=== PATIENT | female | born 1975 | race Caucasian/White ===

== ENCOUNTER 2020-06-28 10:12 | Inpatient (IN) | payer BC ==
[~2020-06-28] VITALS: Ht 157.5 cm; Wt 131.2 kg
[~2020-06-28 10:12] MED LIST: CEFP500 PO; LEVFLO500 PO; OXYACE5T PO; RXHYDACE PO
[2020-06-28 11:11] LABS: Source, Urine Clean Catch
[2020-06-28 11:14] LABS: BASOPHILS ABSOLUTE AUTO 0.05 K/mm3 (0.00-0.23); BASOPHILS PERCENT AUTO 0 % (0-2); EOSINOPHILS ABSOLUTE AUTO 0.02 K/mm3 (0.00-0.68); EOSINOPHILS PERCENT AUTO 0 % (0-6); Hematocrit 40.8 % (33.0-51.0); Hemoglobin 13.2 g/dL (11.5-16.0); IMMATURE GRAN PERCENT AUTO 1 % (0-1); LYMPHOCYTES PERCENT AUTO 6 % (21-46); MONOCYTES ABSOLUTE AUTO 1.16 K/mm3 (0.16-1.47); MONOCYTES PERCENT AUTO 6 % (4-13); Mean Corpuscular HGB 28.4 pg (26.0-34.0); Mean Corpuscular HGB Conc 32.4 g/dL (31.5-36.5); Mean Corpuscular Volume 88 fL (80-100); Mean Platelet Volume 9.6 fL (9.1-12.4); NEUTROPHILS ABSOLUTE AUTO 15.92 K/mm3 (1.96-9.15); NEUTROPHILS PERCENT AUTO 87 % (41-73); Platelet Count 342 K/mm3 (150-400); RDW Coefficient Variation 13.8 % (11.7-14.2); RDW Standard Deviation 43.8 fL (35.1-46.3); Red Blood Cell Count 4.65 M/mm3 (3.80-5.20); White Blood Cell Count 18.35 K/mm3 (4.00-11.30)
[2020-06-28 11:20] LABS: Albumin, Blood 3.8 g/dL (3.4-5.0); Albumin/Globulin Ratio 0.7 (0.8-1.8); Bilirubin, Total 0.7 mg/dL (0.1-1.0); Bun/Creatinine Ratio 12.9 (12.0-20.0); Calcium, Blood 8.8 mg/dL (8.5-10.1); Creatinine, Blood 1.32 mg/dL (0.40-1.00); Globulin, Blood 5.2 g/dL (2.2-4.0); Potassium, Blood 3.2 mmol/L (3.5-5.5)
[2020-06-28 11:23] LABS: Appearance, Urine Hazy (Clear); Blood, Urine 2+ (Neg); Color, Urine Yellow (P-Yellow); Glucose Qualitative, Urine Neg (Neg); Ketones, Urine 1+ (Neg); Leukocyte Esterase, Urine 1+ (Neg); Nitrite, Urine Neg (Neg); Protein, Urine 2+ (Neg); Specific Gravity, Urine 1.025 (1.003-1.022); Urobilinogen, Urine 1+ (Normal)
[2020-06-28 11:26] LABS: Bilirubin, Urine 1+ (Neg)
[2020-06-28 11:51] LABS: Amorphous Heavy (0-Heavy); Bacteria Few /hpf; Squamous Epithelial Cells Mod /hpf (Few)
[2020-06-28 15:46] LABS: Influenza A, PCR NEGATIVE (NEGATIVE); Influenza B, PCR NEGATIVE (NEGATIVE); Resp Syncytial Virus, PCR NEGATIVE (NEGATIVE); SARS-Cov-2 (COVID-19) PCR, MMC NEGATIVE (NEGATIVE)
[2020-06-29 03:46] LABS: BASOPHILS ABSOLUTE AUTO 0.02 K/mm3 (0.00-0.23); BASOPHILS PERCENT AUTO 0 % (0-2); EOSINOPHILS PERCENT AUTO 0 % (0-6); Hematocrit 36.6 % (33.0-51.0); Hemoglobin 11.9 g/dL (11.5-16.0); IMMATURE GRAN ABSOLUTE AUTO 0.07 K/mm3 (0.00-0.10); IMMATURE GRAN PERCENT AUTO 0 % (0-1); LYMPHOCYTES ABSOLUTE AUTO 0.62 K/mm3 (0.84-5.20); LYMPHOCYTES PERCENT AUTO 3 % (21-46); MONOCYTES ABSOLUTE AUTO 0.61 K/mm3 (0.16-1.47); MONOCYTES PERCENT AUTO 3 % (4-13); Mean Corpuscular HGB 28.7 pg (26.0-34.0); Mean Corpuscular HGB Conc 32.5 g/dL (31.5-36.5); Mean Corpuscular Volume 88 fL (80-100); Mean Platelet Volume 9.8 fL (9.1-12.4); NEUTROPHILS ABSOLUTE AUTO 17.81 K/mm3 (1.96-9.15); NEUTROPHILS PERCENT AUTO 93 % (41-73); Platelet Count 308 K/mm3 (150-400); RDW Coefficient Variation 13.9 % (11.7-14.2); RDW Standard Deviation 44.6 fL (35.1-46.3); Red Blood Cell Count 4.15 M/mm3 (3.80-5.20); White Blood Cell Count 19.13 K/mm3 (4.00-11.30)
[2020-06-29 04:04] LABS: Bun/Creatinine Ratio 15.7 (12.0-20.0); Calcium, Blood 8.2 mg/dL (8.5-10.1); Creatinine, Blood 1.34 mg/dL (0.40-1.00); Potassium, Blood 3.4 mmol/L (3.5-5.5)
--- NOTE | 2020-06-29 04:40 | NUR ---
SHIFT SUMMARY: PT POD#1 FOR A LAP APPY. LAP SITES C/D/I WITH GAUZE IN PLACE. RON DRAINING A MODERATE AMOUNT OF SANGUINOUS FLUID. 120CC EMPTIED THIS SHIFT. PAIN BEING MANAGED WITH NORCO PER EMAR. PT GIVEN IV PAIN MEDICATION ONCE. DENIES FLATUS. PT AMBULATED IN HALLWAY ONCE THIS SHIFT. OUT OF BED TO BATHROOM SEVERAL TIMES WITH SBA. VOIDING WELL. PT REPORTS MILD DISCOMFORT WITH URINATION. URINE DARK YELLOW IN COLOR. ABX AND FLUIDS INFUSING PER EMAR. PT TOLERATING A SMALL AMOUNT OF CLEAR LIQUIDS THIS SHIFT. DENIES N/V.
--- NOTE | 2020-06-29 18:36 | NUR ---
SHIFT SUMMARY PT A&OX4, VSS, POD1 LAP APPY, 3 LAP SITES GAUZE C/D/I. PAIN MANAGED WITH 5 MG NORCO. JUANJOSE CLEAR LIQUID DIET. AMBULATES INDEPENDENT IN ROOM, TO BRP, UP TO CHAIR. SL, ABX Q6H. VOIDING WELL. WILL REPORT TO ONCOMING NOC RN.
--- NOTE | 2020-06-30 04:15 | NUR ---
SHIFT SUMMARY A/OX4, IND TO BATHROOM. POD2 APPY. LAP SITES TO ABD C/D/I. RON PATENT AND DRAINING SS FLUID. TOLEARTING CLEAR LIQUID DIET. MEDICATED FOR PAIN PER EMAR. VSS, NO ACUTE CHANGES AT THIS TIME. BED IN LOWEST POSITION WITH CALL LIGHT IN REACH. WILL CONTINUE TO MONITOR AND REPORT TO ONCOMING RN.
[2020-06-30 06:59] LABS: BASOPHILS ABSOLUTE AUTO 0.04 K/mm3 (0.00-0.23); BASOPHILS PERCENT AUTO 0 % (0-2); EOSINOPHILS ABSOLUTE AUTO 0.03 K/mm3 (0.00-0.68); EOSINOPHILS PERCENT AUTO 0 % (0-6); Hemoglobin 10.6 g/dL (11.5-16.0); IMMATURE GRAN ABSOLUTE AUTO 0.06 K/mm3 (0.00-0.10); IMMATURE GRAN PERCENT AUTO 1 % (0-1); LYMPHOCYTES ABSOLUTE AUTO 0.96 K/mm3 (0.84-5.20); LYMPHOCYTES PERCENT AUTO 8 % (21-46); MONOCYTES ABSOLUTE AUTO 0.81 K/mm3 (0.16-1.47); MONOCYTES PERCENT AUTO 7 % (4-13); Mean Corpuscular HGB 28.9 pg (26.0-34.0); Mean Corpuscular HGB Conc 32.1 g/dL (31.5-36.5); Mean Corpuscular Volume 90 fL (80-100); Mean Platelet Volume 9.6 fL (9.1-12.4); NEUTROPHILS ABSOLUTE AUTO 10.01 K/mm3 (1.96-9.15); NEUTROPHILS PERCENT AUTO 84 % (41-73); Platelet Count 303 K/mm3 (150-400); RDW Coefficient Variation 14.1 % (11.7-14.2); RDW Standard Deviation 45.8 fL (35.1-46.3); Red Blood Cell Count 3.67 M/mm3 (3.80-5.20); White Blood Cell Count 11.91 K/mm3 (4.00-11.30)
[2020-06-30 07:20] LABS: Bun/Creatinine Ratio 14.9 (12.0-20.0); Calcium, Blood 7.6 mg/dL (8.5-10.1); Creatinine, Blood 1.21 mg/dL (0.40-1.00); Potassium, Blood 3.1 mmol/L (3.5-5.5)
[2020-06-30] MEDS ORDERED: HYDR1TAB94 PO (15:05)
[2020-06-30] MEDS ORDERED: AMOCLA500 PO (15:06)
--- NOTE | 2020-06-30 15:13 | NUR ---
DR ASHER IN TO SEE PT DC'D RON DRAIN. PT TOLERATED WELL.
--- NOTE | 2020-06-30 15:36 | NUR ---
DISCHARGED IV DC'D, WNL, CATHETER INTACT. WENT OVER DISCHARGE INFORMATION, PT VERBALIZED UNDERSTANDING. PT LEFT FLOOR VIA W/C W/ DAUGHTER TO HER RIDE. DISCHARGE PAPER IN HAND.
== END 2020-06-30 15:15 | disposition home or self-care (01) | DRG 339 ==
LOC: ER 10:12 → SURS 14:51
PROVIDERS: Emergency Medicine; Physician Assistant; ADMIT Surgery
PROC: 0DTJ4ZZ Resection of Appendix, Percutaneous Endoscopic Approach (ICD-10-PCS; principal; 2020-06-28 16:30)
DX: K35.32 Acute appendicitis with perforation, localized peritonitis, and gangrene, without abscess (principal); Z68.43 Body mass index [BMI] 50.0-59.9, adult; Z20.822 Contact with and (suspected) exposure to COVID-19; E66.01 Morbid (severe) obesity due to excess calories; Z98.890 Other specified postprocedural states; Z88.5 Allergy status to narcotic agent
CPT/HCPCS: 0241U; 36415; 74176; 80048; 80053; 81001; 81025; 83690; 85025; 87086; 88304; 96365; 96375; 99285-25; A9270; J0330; J0694; J1170; J1650; J1885; J2250; J2370; J2405; J2543; J2704; J2710; J3010; J3480; J7040; J7120

== ENCOUNTER 2023-11-29 12:55 | Day surgery (SDC) | payer BC ==
[~2023-11-29] VITALS: Ht 157.5 cm; Wt 128.4 kg
[~2023-11-29 12:55] MED LIST changes: +AMOCLA500 PO; +Balanced Salt Epinephrine Irrigation Solution 500 mL IR SCH; +HYDR1TAB94 PO; +Lidocaine HCl/Pf 1% 5 ML VIAL XX SCH; +Moxifloxacin HCL 0.5 MG/0.1 ML 0.4MLSYR RIGHTEYE SCH; +NS 500 ML IV ONE; +PHENYLEPHRINE\\TROPICAMIDE\\TETRACAINE OPHTHALMIC DILATING SOLN RIGHTEYE PRN; +Povidone-Iodine 450 DROP/30 ML Solution ONE; +Povidone-Iodine 450 DROP/30 ML Solution RIGHTEYE SCH; +Tetracaine HCl/Pf 0.5% Opth Soln 4 ml ONE; +Triamcinolone Inj Susp 40 MG / ML 1ML Vial INJ SCH; +Triamcinolone Inj Susp 40 MG / ML 1ML Vial ONE
[2023-11-29] MEDS ORDERED: ACET500 PO (13:38)
[2023-11-29] MEDS ORDERED: IBU800 M1 PO (13:39)
[2023-11-29] MEDS ORDERED: OMEP20ER PO (13:40)
[2023-11-29] MEDS ORDERED: FUROSEMIDE20 MG PO (13:41)
[2023-11-29] MEDS ORDERED: K-TAB ER20 ME1 PO (13:42)
[2023-11-29] MEDS ORDERED: BIOTIN5000 MC4 PO (13:44)
[2023-11-29] MEDS ORDERED: Vitamin B-12250 MCG (13:45)
[2023-11-29] MEDS ORDERED: VITAMIN D325 MC3 (13:45)
[2023-11-29] MEDS ORDERED: NS 500 ML IV ONE (13:58)
--- NOTE | 2023-11-29 14:02 | NUR ---
[facility]29/[address] NOTIFIED OF PATIENT'S BLOOD PRESSURE 204/108 AND THEN 178/91. SECOND BLOOD PRESSURE TAKEN WITH RADIAL CUFF. NO NEW ORDERS FROM DR CLARK.
[2023-11-29] MEDS ORDERED: Ondansetron HCl 2 MG / ML 2ML Vial ONE (14:14)
[2023-11-29] MEDS ORDERED: Midazolam HCl 1MG / ML 2ML Vial ONE (14:14)
[2023-11-29] MEDS ORDERED: Labetalol HCL 5 MG/ML 4ML Injection (Single Dose) ONE (14:14)
[2023-11-29] MEDS ORDERED: HydrALAZINE HCl 20 MG / ML 1ML Vial ONE (14:14)
[2023-11-29] MEDS ORDERED: propofoL 20 ML IV ONE (14:30)
[2023-11-29 15:25] VITALS: BP 138/78
== END 2023-11-29 15:24 | disposition home or self-care (01) ==
LOC: ORSCSDS 12:55
PROVIDERS: Ophthalmology
PROC: 08RJ3JZ Replacement of Right Lens with Synthetic Substitute, Percutaneous Approach (ICD-10-PCS; principal; 2023-11-29 14:30)
DX: H25.813 Combined forms of age-related cataract, bilateral (principal); K21.9 Gastro-esophageal reflux disease without esophagitis; Z79.899 Other long term (current) drug therapy
CPT/HCPCS: J0360; J2250; J2405; J2704; J3301; J7040; V2632

== ENCOUNTER 2023-12-06 07:01 | Day surgery (SDC) | payer BC ==
[~2023-12-06] VITALS: Ht 157.5 cm; Wt 128.0 kg
[~2023-12-06 07:01] MED LIST changes: +ACET500 PO; +BIOTIN5000 MC4 PO; +FUROSEMIDE20 MG PO; +IBU800 M1 PO; +K-TAB ER20 ME1 PO; +Lidocaine HCl/Pf 1% 5 ML VIAL ONE; +Moxifloxacin HCL 0.5 MG/0.1 ML 0.4MLSYR LEFTEYE SCH; -Moxifloxacin HCL 0.5 MG/0.1 ML 0.4MLSYR RIGHTEYE SCH; +OMEP20ER PO; +PHENYLEPHRINE\\TROPICAMIDE\\TETRACAINE OPHTHALMIC DILATING SOLN LEFTEYE PRN; -PHENYLEPHRINE\\TROPICAMIDE\\TETRACAINE OPHTHALMIC DILATING SOLN RIGHTEYE PRN; +Povidone-Iodine 450 DROP/30 ML Solution LEFTEYE SCH; -Povidone-Iodine 450 DROP/30 ML Solution RIGHTEYE SCH; +VITAMIN D325 MC3; +Vitamin B-12250 MCG
[2023-12-06] MEDS ORDERED: NS 500 ML IV ONE (07:45)
[2023-12-06] MEDS ORDERED: Midazolam HCl 1MG / ML 2ML Vial ONE (08:24)
[2023-12-06 08:49] VITALS: BP 145/91
== END 2023-12-06 09:00 | disposition home or self-care (01) ==
LOC: ORSCSDS 07:01
PROVIDERS: Ophthalmology
PROC: 08RK3JZ Replacement of Left Lens with Synthetic Substitute, Percutaneous Approach (ICD-10-PCS; principal; 2023-12-06 08:30)
DX: H25.812 Combined forms of age-related cataract, left eye (principal); Z96.1 Presence of intraocular lens; Z79.899 Other long term (current) drug therapy
CPT/HCPCS: J2001; J2003; J2250; J3301; J7040; V2632